=== PATIENT | male | born 1985 | race Caucasian/White ===

== ENCOUNTER 2017-12-21 10:58 | Emergency (ER) | payer OTHER ==
[~2017-12-21] VITALS: Ht 167.6 cm; Wt 63.5 kg
== END 2017-12-21 13:39 | disposition home or self-care (01) ==
LOC: ER 10:58
DX: K12.2 Cellulitis and abscess of mouth (principal)

== ENCOUNTER 2018-04-26 12:59 | Emergency (ER) | payer OTHER ==
[~2018-04-26] VITALS: Ht 167.6 cm; Wt 63.5 kg
[2018-04-26] MEDS ORDERED: IBUPROFEN800 MG PO (15:57)
== END 2018-04-26 21:00 | disposition home or self-care (01) ==
LOC: ER 12:59
DX: S99.812A Other specified injuries of left ankle, initial encounter (principal); W50.2XXA Accidental twist by another person, initial encounter; Y93.89 Activity, other specified; Y92.89 Other specified places as the place of occurrence of the external cause; Y99.8 Other external cause status